=== PATIENT | male | born 1950 | race Caucasian/White ===

== ENCOUNTER 2017-06-30 08:12 | Emergency (ER) | payer OTHER ==
[2017-06-30 08:28] VITALS: BP 110/61
--- NOTE | 2017-06-30 08:45 | EDM.PDOC ---
ED HPI GENERAL MEDICAL PROBLEM - General Chief Complaint: Respiratory Problem Stated Complaint: CONGESTED Time Seen by Provider: 06/30/17 08:18 Source of Information: Reports: Patient History Limitations: Reports: No Limitations - History of Present Illness INITIAL COMMENTS - FREE TEXT/NARRATIVE: Patient comes into the emergency department with a three-day history of cough congestion. Patient is a type II diabetic and when he over exerts himself or is in a stressful situation he begins to feel fatigue and develop upper respiratory symptoms. His primary care provider gives him a Z-Oskar to help with the symptoms. Patient states he's been coughing lost 3 days producing green sputum his blood sugars have elevated up into the 200s which normally run around 110s. He also has difficulty lying flat due to the congestion increased nasal production. Pt denies any fever nausea, vomiting, diarrhea, chest pain, or shortness of breath. Onset: Gradual Improves with: Reports: Movement Worsens with: Reports: Rest Associated Symptoms: Reports: cough w sputum - Related Data Allergies Allergy/AdvReac Type Severity Reaction Status Date / Time No Known Allergies Allergy Verified 06/30/17 08:29 Home Meds: Home Meds Liraglutide [Victoza] 18 units DAILY 07/25/15 [History] Sildenafil [Viagra] 1 tab ASDIRECTED PRN 07/25/15 [History] metFORMIN [Glucophage] 1 tab BID 07/25/15 [History] Azithromycin [Zithromax] 250 mg PO DAILY 5 Days #6 tab 06/30/17 [Rx] Past Medical History Cardiovascular History: Reports: High Cholesterol Endocrine/Metabolic History: Reports: Diabetes, Type II - Past Surgical History Musculoskeletal Surgical History: Reports: Shoulder Surgery, Other (See Below) ED ROS GENERAL - Review of Systems Review Of Systems: See Below Constitutional: Reports: No Symptoms HEENT: Reports: No Symptoms Respiratory: Reports: Cough, Sputum. Denies: Shortness of Breath, Wheezing, Pleuritic Chest Pain Cardiovascular: Reports: No Symptoms Endocrine: Reports: No Symptoms GI/Abdominal: Reports: No Symptoms Musculoskeletal: Reports: No Symptoms Skin: Reports: No Symptoms Neurological: Reports: No Symptoms Psychiatric: Reports: No Symptoms Hematologic/Lymphatic: Reports: No Symptoms Immunologic: Reports: No Symptoms ED EXAM, GENERAL - Physical Exam Exam: See Below Exam Limited By: No Limitations General Appearance: Alert, WD/WN, No Apparent Distress Throat/Mouth: Normal Inspection Head: Atraumatic, Normocephalic Neck: Normal Inspection, Supple, Non-Tender, Full Range of Motion Respiratory/Chest: No Respiratory Distress, Lungs Clear, Normal Breath Sounds, No Accessory Muscle Use, Chest Non-Tender Cardiovascular: Normal Peripheral Pulses, Regular Rate, Rhythm, No Edema GI/Abdominal: Normal Bowel Sounds, Soft, Non-Tender, No Distention Back Exam: Normal Inspection, Full Range of Motion Extremities: Normal Inspection, Normal Range of Motion, Normal Capillary Refill Neurological: Alert, Oriented, CN II-XII Intact, Normal Cognition, Normal Gait, No Motor/Sensory Deficits Psychiatric: Normal Affect, Normal Mood Skin Exam: Warm, Dry, Intact, Normal Color, No Rash Course - Vital Signs Last Recorded V/S: Last Vital Signs Temp 35.8 C 06/30/17 08:18 Pulse 100 06/30/17 08:18 Resp 18 06/30/17 08:18 BP 110/61 06/30/17 08:18 Pulse Ox 94 L 06/30/17 08:18 Departure - Departure Time of Disposition: 08:40 Disposition: Home, Self-Care 01 Condition: Good Clinical Impression: Acute bronchiolitis Qualifiers: Bronchiolitis organism: unspecified organism Qualified Code(s): J21.9 - Acute bronchiolitis, unspecified Acute bronchitis Qualifiers: Bronchitis organism: unspecified organism Qualified Code(s): J20.9 - Acute bronchitis, unspecified - Discharge Information Prescriptions: Azithromycin [Zithromax] 250 mg PO DAILY 5 Days #6 tab Instructions: Bronchospasm, Adult, Upper Respiratory Infection, Adult, Easy-to- Read Additional Instructions: 1. Rest 2. Increase water intake 3. Follow up with PCP if not feeling better within 7-10 days - Problem List Review Problem List Initiated/Reviewed/Updated: Yes - Assessment/Plan Plan: 1. Did discuss with the patient in excess regarding viral versus bacterial etiology. Also discussed antibiotics stewardship. 2. Patient would like a Z-Oskar for his symptoms despite the education provided. He states that he has gotten that regiment for the past 30 years when he's had no issues and that has been what has worked well for him. 3. Prescription sent with the patient 4. Education regarding diet activity was provided 5. She was encouraged follow-up with his PCP in 7-10 days if not better
== END 2017-06-30 08:45 | disposition home or self-care (01) ==
LOC: VM.ED 08:12
DX: J21.9 Acute bronchiolitis, unspecified (principal); J20.9 Acute bronchitis, unspecified; E11.9 Type 2 diabetes mellitus without complications; E78.00 Pure hypercholesterolemia, unspecified; I10 Essential (primary) hypertension; Z79.84 Long term (current) use of oral hypoglycemic drugs
CPT/HCPCS: 99283

== ENCOUNTER 2018-09-21 09:14 | Emergency (ER) | payer OTHER ==
[2018-09-21 09:31] VITALS: BP 108/73; PULSE 88
--- NOTE | 2018-09-21 17:54 | EDM.PDOC ---
ED HPI GENERAL MEDICAL PROBLEM - General Chief Complaint: Cardiovascular Problem Stated Complaint: COUGHING Time Seen by Provider: 09/21/18 09:25 Source of Information: Reports: Patient History Limitations: Reports: No Limitations - History of Present Illness INITIAL COMMENTS - FREE TEXT/NARRATIVE: Pt. presents to ER with complaints of cough and chest congestion for the past week. He has been running some low-grade fever. He states that the cough is productive or greyish-yellow sputum. Denies any hemoptysis. He denies any sinus congestion. No chest pain or shortness of breath. He denies being around any ill contacts. Denies any skin rashes. Denies any peripheral edema. He complains of feeling fatigued and run down. Denies any sore throat. Onset: Today Onset Date: 09/21/18 Location: Reports: Chest Quality: Reports: Burning - Related Data Allergies Allergy/AdvReac Type Severity Reaction Status Date / Time No Known Allergies Allergy Verified 06/30/17 08:29 Home Meds: Home Meds Sildenafil [Viagra] 1 tab PO ASDIRECTED PRN 07/25/15 [History] Glimepiride [Amaryl] 2 mg PO BID 06/30/17 [History] Liraglutide [Victoza] 1.2 mg SQ DAILY 06/30/17 [History] Valsartan 160 mg PO DAILY 06/30/17 [History] metFORMIN HCl [Metformin HCl] 1,000 mg PO BID 06/30/17 [History] Empagliflozin [Jardiance] 1 tab DAILY 09/21/18 [History] Past Medical History Cardiovascular History: Reports: High Cholesterol Respiratory History: Reports: Bronchitis, Recurrent Endocrine/Metabolic History: Reports: Diabetes, Type II - Past Surgical History Musculoskeletal Surgical History: Reports: Shoulder Surgery Social & Family History - Tobacco Use Smoking Status *Q: Never Smoker - Alcohol Use Days Per Week of Alcohol Use: 7 Number of Drinks Per Day: 1 Total Drinks Per Week: 7 - Recreational Drug Use Recreational Drug Use: No ED ROS GENERAL - Review of Systems Review Of Systems: See Below Constitutional: Reports: Fever, Chills, Malaise, Fatigue HEENT: Reports: No Symptoms Respiratory: Reports: Cough Cardiovascular: Reports: No Symptoms Endocrine: Reports: No Symptoms GI/Abdominal: Reports: No Symptoms : Reports: No Symptoms Musculoskeletal: Reports: No Symptoms Skin: Reports: No Symptoms Neurological: Reports: No Symptoms Psychiatric: Reports: No Symptoms Hematologic/Lymphatic: Reports: No Symptoms Immunologic: Reports: No Symptoms ED EXAM, GENERAL - Physical Exam Exam: See Below Exam Limited By: No Limitations General Appearance: Alert, WD/WN, No Apparent Distress Nose: Normal Inspection, Normal Mucosa, No Blood Throat/Mouth: Normal Inspection, Normal Lips, Normal Teeth, Normal Gums, Normal Oropharynx, Normal Voice, No Airway Compromise Head: Atraumatic, Normocephalic Neck: Normal Inspection, Supple, Non-Tender, Full Range of Motion Respiratory/Chest: No Respiratory Distress, No Accessory Muscle Use, Crackles, Rhonchi Cardiovascular: Normal Peripheral Pulses, Regular Rate, Rhythm, No Edema, No Gallop, No JVD, No Murmur, No Rub Peripheral Pulses: 4+: Radial (L) (Male) Exam: Deferred Rectal (Males) Exam: Deferred Extremities: Normal Inspection, Normal Range of Motion, Non-Tender, Normal Capillary Refill, No Pedal Edema Neurological: Alert, Oriented, CN II-XII Intact, Normal Cognition, Normal Gait, Normal Reflexes, No Motor/Sensory Deficits Psychiatric: Normal Affect, Normal Mood Course - Vital Signs Last Recorded V/S: Last Vital Signs Temp 35.9 C 09/21/18 09:14 Pulse 88 09/21/18 09:14 Resp 18 09/21/18 09:14 BP 108/73 09/21/18 09:14 Pulse Ox 97 09/21/18 09:14 Departure - Departure Time of Disposition: 09:30 Disposition: Home, Self-Care 01 Condition: Good Clinical Impression: Bronchitis Instructions: Acute Bronchitis, Adult, [id number], Doxycycline tablets or capsules, Probiotics Forms: ED Department Discharge Additional Instructions: Doxycycline 100mg 1 twice daily for 10 days Drink plenty of fluids Tylenol or ibuprofen for fever/discomfort Mucinex or other OTC cough medicine as needed for cough - Assessment/Plan Plan: Doxycycline 100mg 1 twice daily for 10 days Drink plenty of fluids Tylenol or ibuprofen for fever/discomfort Mucinex or other OTC cough medicine as needed for cough
== END 2018-09-21 09:43 | disposition home or self-care (01) ==
LOC: VM.ED 09:14
DX: J40 Bronchitis, not specified as acute or chronic (principal); E11.9 Type 2 diabetes mellitus without complications; Z79.899 Other long term (current) drug therapy; Z79.84 Long term (current) use of oral hypoglycemic drugs; E78.00 Pure hypercholesterolemia, unspecified
CPT/HCPCS: 99283

== ENCOUNTER 2018-09-29 08:32 | Emergency (ER) | payer OTHER ==
[2018-09-29 08:55] VITALS: BP 103/73
[2018-09-29] MEDS ORDERED: Sodium Chloride 0.9% 10 ML Syringe FLUSH PRN (08:56)
[2018-09-29] MEDS ORDERED: cefTRIAXone 1 GM Vial IVPUSH ONE (08:57)
[2018-09-29] MEDS ORDERED: methylPREDNISolone Sodium Succinate 125 MG/2 ML SDV IVPUSH ONE (08:57)
--- NOTE | 2018-09-29 09:07 | EDM.PDOC ---
ED HPI GENERAL MEDICAL PROBLEM - General Chief Complaint: Respiratory Problem Stated Complaint: ER VISIT Time Seen by Provider: 09/29/18 08:40 Source of Information: Reports: Patient History Limitations: Reports: No Limitations - History of Present Illness INITIAL COMMENTS - FREE TEXT/NARRATIVE: Patient comes into the emergency department with increased congestion and cough. Patient was in approximately 1 week ago and was given doxycycline 100 mg twice a day for was thought to be a bronchial/upper respiratory issue. Patient states that he is not any better one week later. He states that he is coughing more, has more production, and is having difficulty lying flat because of the cough. He denies having any fever or shortness of breath with rest. However he has noticed with increased amount of exercise that he is becoming winded and more fatigued. Patient denies any other concerns or complaints Onset: Gradual Location: Reports: Chest Quality: Reports: Other Improves with: Reports: None Worsens with: Reports: None Associated Symptoms: Reports: Cough, cough w sputum, Malaise. Denies: Diaphoresis, Fever/Chills, Nausea/Vomiting - Related Data Allergies Allergy/AdvReac Type Severity Reaction Status Date / Time No Known Allergies Allergy Verified 09/29/18 08:48 Home Meds: Home Meds Sildenafil [Viagra] 1 tab PO ASDIRECTED PRN 07/25/15 [History] Glimepiride [Amaryl] 2 mg PO BID 06/30/17 [History] Liraglutide [Victoza] 1.2 mg SQ DAILY 06/30/17 [History] Valsartan 160 mg PO DAILY 06/30/17 [History] metFORMIN HCl [Metformin HCl] 1,000 mg PO BID 06/30/17 [History] Empagliflozin [Jardiance] 1 tab DAILY 09/21/18 [History] Levofloxacin 750 mg PO DAILY 5 Days #5 tablet 09/29/18 [Rx] predniSONE [Prednisone] 20 mg PO BID #5 tablet 09/29/18 [Rx] Past Medical History Cardiovascular History: Reports: High Cholesterol Respiratory History: Reports: Bronchitis, Recurrent Endocrine/Metabolic History: Reports: Diabetes, Type II - Past Surgical History Musculoskeletal Surgical History: Reports: Shoulder Surgery ED ROS GENERAL - Review of Systems Review Of Systems: ROS reveals no pertinent complaints other than HPI. Constitutional: Reports: Malaise, Fatigue, Decreased Appetite HEENT: Reports: No Symptoms Respiratory: Reports: Wheezing, Cough, Sputum Cardiovascular: Reports: No Symptoms Endocrine: Reports: No Symptoms GI/Abdominal: Reports: No Symptoms Musculoskeletal: Reports: No Symptoms Skin: Reports: No Symptoms Neurological: Reports: No Symptoms Psychiatric: Reports: No Symptoms Hematologic/Lymphatic: Reports: No Symptoms ED EXAM, GENERAL - Physical Exam Exam: See Below Exam Limited By: No Limitations General Appearance: Alert, WD/WN, No Apparent Distress Eye Exam: Bilateral Eye: EOMI, PERRL Respiratory/Chest: No Respiratory Distress, No Accessory Muscle Use, Chest Non- Tender, Rhonchi, Wheezing Cardiovascular: Normal Peripheral Pulses, Regular Rate, Rhythm, No Edema Extremities: Normal Inspection, Normal Range of Motion, Non-Tender, No Pedal Edema, Normal Capillary Refill Neurological: Alert, Oriented, Normal Gait Psychiatric: Normal Affect, Normal Mood Skin Exam: Warm, Dry, Intact, Normal Color Course - Vital Signs Last Recorded V/S: Last Vital Signs Temp 36.6 C 09/29/18 08:40 Pulse 90 09/29/18 08:40 Resp 16 09/29/18 08:40 BP 103/73 09/29/18 08:40 Pulse Ox 92 L 09/29/18 08:40 - Orders/Labs/Meds Orders: Active Orders 24 hr Category Date Time Status COMPREHENSIVE METABOLIC PN,CMP [CHEM] Stat Lab 09/29/18 08:56 Ordered Benzonatate [Tessalon Perles] Med 09/29/18 12:00 Ordered 100 mg PO TID Sodium Chloride 0.9% [Saline Flush] Med 09/29/18 08:56 Ordered 10 ml FLUSH ASDIRECTED PRN Peripheral IV Insertion Adult [OM.PC] Stat Oth 09/29/18 08:56 Ordered Medication Orders Benzonatate (Tessalon Perles) 100 mg PO TID ACE Sodium Chloride (Saline Flush) 10 ml FLUSH ASDIRECTED PRN PRN Reason: Keep Vein Open Labs: Laboratory Tests 09/29/18 Range/Units 09:03 WBC 6.7 (4.0-10.0) x10^3/uL RBC 5.09 (4.5-6.0) x10^6/uL Hgb 15.3 (14.0-18.0) g/dL Hct 44.5 (40.0-52.0) % MCV 87.4 (78.0-93.0) fL MCH 30.1 (26.0-32.0) pg MCHC 34.4 (32.0-36.0) g/dL RDW Coeff of [place] 12.6 (10.0-15.0) % Plt Count 172 (130-400) x10^3/uL Neut % (Auto) 68.3 (50.0-80.0) % Lymph % (Auto) 20.6 L (25.0-50.0) % [place] % (Auto) 9.0 (2.0-11.0) % Eos % (Auto) 1.5 (0.0-4.0) % Baso % (Auto) 0.6 (0.2-1.2) % Meds: Medications Generic Name Dose Route Start Last Admin Trade Name Freq PRN Reason Stop Dose Admin Benzonatate 100 mg 09/29/18 12:00 Tessalon Perles PO TID ACE Sodium Chloride 10 ml 09/29/18 08:56 Saline Flush FLUSH ASDIRECTED PRN Keep Vein Open Discontinued Medications Generic Name Dose Route Start Last Admin Trade Name Freq PRN Reason Stop Dose Admin Ceftriaxone Sodium 1 gm 09/29/18 08:57 09/29/18 09:11 Rocephin IVPUSH 09/29/18 08:58 1 gm ONETIME ONE Administration Methylprednisolone Sodium Succinate 125 mg 09/29/18 08:57 09/29/18 09:14 Solu-Medrol IVPUSH 09/29/18 08:58 125 mg ONETIME ONE Administration Departure - Departure Time of Disposition: 09:30 Disposition: Home, Self-Care 01 Condition: Good Clinical Impression: Community acquired pneumonia Qualifiers: Laterality: unspecified laterality Qualified Code(s): J18.9 - Pneumonia, unspecified organism - Discharge Information *PRESCRIPTION DRUG MONITORING PROGRAM REVIEWED*: Not Applicable *COPY OF PRESCRIPTION DRUG MONITORING REPORT IN PATIENT LEIA: Not Applicable Prescriptions: Levofloxacin 750 mg PO DAILY 5 Days #5 tablet predniSONE [Prednisone] 20 mg PO BID #5 tablet Instructions: Community-Acquired Pneumonia, Adult, [id number], Probiotics, Levofloxacin tablets, Prednisone tablets Referrals: Regan Freedman MD [Primary Care Provider] - Forms: ED Department Discharge Additional Instructions: 1. rest 2. increase your water intake 3. Take medications as prescribed 4. Follow up in the clinic if not feeling better within a week 5. Take a probiotic to promote health GI digestion while on antibiotics. 6. Blood sugars may elevate with the use of steroids continue to monitor closely and follow up in the clinic if unable to regulate or if symptoms arise 7. Can take the Tessalon pearls as needed for cough 8. Call with any questions or concerns - My Orders Last 24 Hours: My Active Orders 09/29/18 08:56 COMPREHENSIVE METABOLIC PN,CMP [CHEM] Stat Sodium Chloride 0.9% [Saline Flush] 10 ml FLUSH ASDIRECTED PRN Peripheral IV Insertion Adult [OM.PC] Stat 09/29/18 12:00 Benzonatate [Tessalon Perles] 100 mg PO TID - Assessment/Plan Last 24 Hours: My Active Orders 09/29/18 08:56 COMPREHENSIVE METABOLIC PN,CMP [CHEM] Stat Sodium Chloride 0.9% [Saline Flush] 10 ml FLUSH ASDIRECTED PRN Peripheral IV Insertion Adult [OM.PC] Stat 09/29/18 12:00 Benzonatate [Tessalon Perles] 100 mg PO TID Assessment:: 1. prolong cough 2. wheezing 3. Community acquired pneumonia
--- NOTE | 2018-09-29 09:28 | CR ---
[id number] RAD/RAD Chest PA And Lateral EXAM: FRONTAL AND LATERAL CHEST INDICATION: Congestion, cough and abnormal breath sounds. COMPARISON: None. DISCUSSION: Mild subsegmental atelectasis in the lung bases with no definite infiltrates. Normal heart size. Mild mid thoracic compression fracture. IMPRESSION: 1. Mild bibasilar atelectasis with no definite infiltrates. Aravind Santos MD 09/29/18 0926 Thank you for allowing us to participate in the care of your patient.
[2018-09-29 09:30] LABS: CHLORIDE,CL 102 mmol/L (98-107); SODIUM,NA 139 mmol/L (136-145)
[2018-09-29] MEDS ORDERED: Benzonatate 100 MG Cap ONE (09:37)
[2018-09-29] MEDS ORDERED: Benzonatate 100 MG Cap PO SCH (12:00)
== END 2018-09-29 09:35 | disposition home or self-care (01) ==
LOC: VM.ED 08:32
DX: J18.9 Pneumonia, unspecified organism (principal); E11.9 Type 2 diabetes mellitus without complications; Z79.899 Other long term (current) drug therapy; Z79.84 Long term (current) use of oral hypoglycemic drugs; E78.00 Pure hypercholesterolemia, unspecified
CPT/HCPCS: 71046; 80053; 85025; 96374; 96375; 99283; J0696; J2930

== ENCOUNTER 2019-09-06 11:38 | Emergency (ER) | payer OTHER ==
--- NOTE | 2019-09-06 11:56 | EDM.PDOC ---
ED HPI GENERAL MEDICAL PROBLEM - General Chief Complaint: Lower Extremity Injury/Pain Stated Complaint: HURT LEFT FOOT Time Seen by Provider: 09/06/19 11:40 Source of Information: Reports: Patient History Limitations: Reports: No Limitations - History of Present Illness INITIAL COMMENTS - FREE TEXT/NARRATIVE: She comes into the emergency department with complaints of the left foot injury. Patient states that he was walking to the bathroom last evening and ended up stubbing his left pinky toe between the door jam. He states that he felt pain and discomfort right away however he was able to continue with his activities of daily living. Shortly after the injury he states that it was throbbing sitting. When the patient rested things did get better. He states that this morning he woke up and noticed that it was bruised more on the pinky toe but was able to ambulate without difficulty. He was up doing yard work and however the discomfort has continued to progress. He wants further evaluation to see if a wrap or brace should be supported. Patient denies any numbness or tingling and states he does have range of motion. Any break in the skin that, bleeding, redn ess, or swelling. Patient also denies any chest pain, shortness of breath, dizziness, loss consciousness, abdominal discomfort, GI upset, or peripheral edema. Patient states he is been relatively healthy and has no symptoms of COVID-19 or recent exposure that he is aware of or personal testing. Onset: Sudden Location: Reports: Lower Extremity, Left Quality: Reports: Throbbing Severity: Mild Improves with: Reports: Immobilization Worsens with: Reports: Movement Context: Reports: Activity Associated Symptoms: Reports: No Other Symptoms - Related Data Allergies Allergy/AdvReac Type Severity Reaction Status Date / Time No Known Allergies Allergy Verified 09/29/18 08:48 Home Meds: Home Meds Sildenafil [Viagra] 1 tab PO ASDIRECTED PRN 07/25/15 [History] Glimepiride [Amaryl] 2 mg PO BID 06/30/17 [History] Liraglutide [Victoza] 1.2 mg SQ DAILY 06/30/17 [History] Valsartan 160 mg PO DAILY 06/30/17 [History] metFORMIN HCl [Metformin HCl] 1,000 mg PO BID 06/30/17 [History] Empagliflozin [Jardiance] 1 tab DAILY 09/21/18 [History] Levofloxacin 750 mg PO DAILY 5 Days #5 tablet 09/29/18 [Rx] predniSONE [Prednisone] 20 mg PO BID #5 tablet 09/29/18 [Rx] Past Medical History Cardiovascular History: Reports: High Cholesterol Respiratory History: Reports: Bronchitis, Recurrent Endocrine/Metabolic History: Reports: Diabetes, Type II - Past Surgical History Musculoskeletal Surgical History: Reports: Shoulder Surgery Review of Systems - Review of Systems Review Of Systems: Comprehensive ROS is negative, except as noted in HPI. Constitutional: Reports: No Symptoms Eyes: Reports: No Symptoms Ears: Reports: No Symptoms Nose: Reports: No Symptoms Mouth/Throat: Reports: No Symptoms Respiratory: Reports: No Symptoms Cardiovascular: Reports: No Symptoms GI/Abdominal: Reports: No Symptoms Genitourinary: Reports: No Symptoms Skin: Reports: No Symptoms Neurological: Reports: No Symptoms Psychiatric: Reports: No Symptoms ED EXAM, GENERAL - Physical Exam Exam: See Below Exam Limited By: No Limitations General Appearance: Alert, WD/WN, No Apparent Distress Head: Atraumatic, Normocephalic Cardiovascular: Regular Rate, Rhythm, No Edema Peripheral Pulses: 4+: Dorsalis Pedis (L), Dorsalis Pedis (R) Back Exam: Normal Inspection, Full Range of Motion Extremities: Normal Inspection, Other (left foot 5 digit-ecchymosis noted. No redness, swelling, warmth, bleedin or deformity noted) Neurological: Alert, Oriented, Normal Gait Psychiatric: Normal Affect, Normal Mood Skin Exam: Warm, Dry, Intact Course - Orders/Labs/Meds Orders: Active Orders 24 hr Category Date Time Status Foot Comp Min 3V Lt [CR] Stat Exams 09/06/19 11:49 Taken Departure - Departure Time of Disposition: 12:30 Disposition: Home, Self-Care 01 Condition: Good Clinical Impression: Toe fracture, left Qualifiers: Encounter type: initial encounter Toe: lesser toe Fracture type: closed Phalanx: proximal Fracture alignment: nondisplaced Qualified Code(s): S92.515A - Nondisplaced fracture of proximal phalanx of left lesser toe(s), initial encounter for closed fracture - Discharge Information *PRESCRIPTION DRUG MONITORING PROGRAM REVIEWED*: Not Applicable *COPY OF PRESCRIPTION DRUG MONITORING REPORT IN PATIENT LEIA: Not Applicable Instructions: Toe Fracture, [id number] Referrals: Regan Freedman MD [Primary Care Provider] - Forms: ED Department Discharge Additional Instructions: 1. Rest 2. wear splint for 5-7 days as needed to help with any pain or discomfort 3. Can use tylenol and ibuprofen as needed for pain and discomfort 4. Diet as tolerated 5. Activity as tolerated 6. Elevated the injured area above the level of the heart to decrease swelling and discomfort. 7. Use ice 3-4 times a day at 20-minute intervals to help with any swelling and discomfort 8. Follow-up with your primary care provider symptoms continue or to progress 9. Follow with any questions or concerns 10. Discharge information has been provided regarding your injury - My Orders Last 24 Hours: My Active Orders 09/06/19 11:49 Foot Comp Min 3V Lt [CR] Stat - Assessment/Plan Last 24 Hours: My Active Orders 09/06/19 11:49 Foot Comp Min 3V Lt [CR] Stat Assessment:: 1. left foot injury 2. left toe fracture Plan: 1. X-ray completed in the emergency department results reviewed with the patient 2. Ice Applied to the affected limb 3. surgical shoe applied for comfort 4. Medication offered to the patient- pt denied needing any medication at this time 5. Education regarding splinting, activity, [id number] medications, and follow-up care provided. 6. All questions and concerns addressed with the patient prior to discharge
[2019-09-06 12:48] VITALS: BP 125/77; PULSE 82
--- NOTE | 2019-09-06 12:59 | CR ---
[id number] RAD/RAD Foot Left 3V Min EXAM: RAD Foot Left 3V Min CLINICAL DATA: TRAUMA COMPARISON: No previous similar exam is available. FINDINGS: A comminuted fracture is seen at the base of the left fifth proximal phalanx with articular involvement. IMPRESSION: LEFT FIFTH PROXIMAL PHALANGEAL FRACTURE Scottie Guzman MD 09/06/19 [id number] Thank you for allowing us to participate in the care of your patient.
== END 2019-09-06 12:30 | disposition home or self-care (01) ==
LOC: VM.ED 11:38
DX: S92.515A Nondisplaced fracture of proximal phalanx of left lesser toe(s), initial encounter for closed fracture (principal); E11.9 Type 2 diabetes mellitus without complications; E78.00 Pure hypercholesterolemia, unspecified; Z79.84 Long term (current) use of oral hypoglycemic drugs; Z79.899 Other long term (current) drug therapy; W23.0XXA Caught, crushed, jammed, or pinched between moving objects, initial encounter
CPT/HCPCS: 73630-LT; 99283-25; 99283-GF

== ENCOUNTER 2024-04-26 08:29 | Emergency (ER) | payer MEDICARE, OTHER ==
[2024-04-26 09:21] VITALS: BP 122/68; PULSE 89
== END 2024-04-26 09:10 | disposition home or self-care (01) ==
LOC: VM.ED 08:29
DX: J06.9 Acute upper respiratory infection, unspecified (principal); E11.9 Type 2 diabetes mellitus without complications; Z79.84 Long term (current) use of oral hypoglycemic drugs; Z79.899 Other long term (current) drug therapy
CPT/HCPCS: 99283

== ENCOUNTER 2024-06-07 08:24 | Emergency (ER) | payer MEDICARE, OTHER ==
[2024-06-07 08:42] LABS: BASOPHILS ABSOLUTE AUTO 0.4 x10^3/uL (0.0-0.2); BASOPHILS PERCENT AUTO 2.5 % (0.2-1.2); EOSINOPHILS ABSOLUTE AUTO 0.5 x10^3/uL (0.0-0.5); HEMATOCRIT 41.7 % (40.0-52.0); HEMOGLOBIN 13.4 g/dL (14.0-18.0); IMMATURE GRAN ABSOLUTE AUTO 0.63 x10^3/uL (0.00-0.07); LYMPHOCYTES ABSOLUTE AUTO 1.6 x10^3/uL (1.0-4.8); LYMPHOCYTES PERCENT AUTO 10.8 % (25.0-50.0); MEAN CORPUSCULAR HEMOGLOBIN 27.5 pg (26.0-32.0); MEAN CORPUSCULAR HGB CONC 32.1 g/dL (32.0-36.0); MEAN CORPUSCULAR VOLUME 85.6 fL (78.0-93.0); MONOCYTES ABSOLUTE AUTO 1.5 x10^3/uL (0.0-0.8); MONOCYTES PERCENT AUTO 10.2 % (2.0-11.0); NEUTROPHILS ABSOLUTE AUTO 10.3 x10^3/uL (1.8-7.7); NEUTROPHILS PERCENT AUTO 69.3 % (50.0-80.0); PLATELET COUNT,PLT 156 x10^3/uL (130-400); RED BLOOD CELL COUNT 4.87 x10^6/uL (4.5-6.0); WHITE BLOOD CELL COUNT,WBC 14.9 x10^3/uL (4.0-10.0)
[2024-06-07 09:09] LABS: ALANINE AMINOTRANSFERASE,ALT 39 U/L (16-63); ALBUMIN 3.6 g/dL (3.4-5.0); ALKALINE PHOSPHATASE 96 U/L (46-116); ASPARTATE AMNIOTRANSFERASE,AST 23 U/L (15-37); BILIRUBIN TOTAL 0.5 mg/dL (0.2-1.0); BLOOD UREA NITROGEN,BUN 35 mg/dL (7-18); CALCIUM 8.9 mg/dL (8.5-10.1); CARBON DIOXIDE,CO2 30 mmol/L (21-32); CHLORIDE,CL 103 mmol/L (98-107); GLUCOSE RANDOM 212 mg/dL (70-99); MAGNESIUM 1.9 mg/dL (1.8-2.4); POTASSIUM,K 4.2 mmol/L (3.5-5.1); PRO B-TYPE NATRIUR PEPT,BNPPRO 2616 pg/mL (<=450); PROTEIN TOTAL,TP 7.2 g/dL (6.4-8.2); SODIUM,NA 139 mmol/L (136-145)
[2024-06-07 09:13] LABS: ANION GAP 10.2 mmol/L (5-15); ESTIMATED GFR 78 mL/min (>=60)
[2024-06-07] MEDS: Furosemide 40 MG/4 ML VIAL IV ONE (09:54)
[2024-06-07 10:50] VITALS: PULSE 86
[2024-06-07 13:23] VITALS: BP 112/66
== END 2024-06-07 12:26 | disposition short-term general hospital (02) ==
LOC: VM.ED 08:24
DX: I11.0 Hypertensive heart disease with heart failure (principal); I50.9 Heart failure, unspecified; E11.9 Type 2 diabetes mellitus without complications; Z79.899 Other long term (current) drug therapy
CPT/HCPCS: 71045; 80053; 83735; 83880; 84484; 85025; 93005; 93010; 96374; 99284; 99285-25; J1938

== ENCOUNTER 2024-08-28 08:46 | Emergency (ER) | payer MEDICARE, OTHER ==
[2024-08-28 09:00] LABS: PLATELET COUNT,PLT 165 x10^3/uL (130-400); RED BLOOD CELL COUNT 4.83 x10^6/uL (4.5-6.0)
[2024-08-28] MEDS ORDERED: Heparin Sodium 5,000 Units/ML Vial IVPUSH ONE (09:05)
[2024-08-28 09:07] LABS: WHITE BLOOD CELL COUNT,WBC 33.4 x10^3/uL (4.0-10.0)
[2024-08-28 09:17] LABS: EOSINOPHILS ABSOLUTE MAN 1.0 x10^3/uL (0.0-0.5); EOSINOPHILS PERCENT MAN 3 % (0-4); LYMPHOCYTES ABSOLUTE MAN 4.7 x10^3/uL (1.0-4.8); LYMPHOCYTES PERCENT MAN 14 % (25-50); MONOCYTES ABSOLUTE MAN 5.3 x10^3/uL (0.0-0.8); MONOCYTES PERCENT MAN 16 % (2-11); NEUTROPHILS ABSOLUTE MAN 22.4 x10^3/uL (1.8-7.7); SEG NEUTROPHILS PERCENT MAN 67 % (50-80)
[2024-08-28 09:18] LABS: PLATELET COUNT ESTIMATE ADEQUATE
[2024-08-28 09:28] LABS: A/G RATIO 0.88; ALANINE AMINOTRANSFERASE,ALT 41 U/L (16-63); ASPARTATE AMNIOTRANSFERASE,AST 36 U/L (15-37); BILIRUBIN TOTAL 0.6 mg/dL (0.2-1.0); BLOOD UREA NITROGEN,BUN 28 mg/dL (7-18); CARBON DIOXIDE,CO2 29 mmol/L (21-32); CHLORIDE,CL 97 mmol/L (98-107); CREATININE 1.4 mg/dL (0.70-1.30); ESTIMATED GFR 52 mL/min (>=60); GLUCOSE RANDOM 216 mg/dL (70-99); POTASSIUM,K 4.3 mmol/L (3.5-5.1); PRO B-TYPE NATRIUR PEPT,BNPPRO 3317 pg/mL (<=450); PROTEIN TOTAL,TP 7.7 g/dL (6.4-8.2); SODIUM,NA 139 mmol/L (136-145)
== END 2024-08-28 11:48 | disposition short-term general hospital (02) ==
LOC: VM.ED 08:46
DX: I21.4 Non-ST elevation (NSTEMI) myocardial infarction (principal); D72.829 Elevated white blood cell count, unspecified; I11.0 Hypertensive heart disease with heart failure; I50.9 Heart failure, unspecified; I48.91 Unspecified atrial fibrillation; I25.10 Atherosclerotic heart disease of native coronary artery without angina pectoris; E11.9 Type 2 diabetes mellitus without complications; Z79.899 Other long term (current) drug therapy
CPT/HCPCS: 36415; 71045; 80053; 83735; 83880; 84484; 85025; 99285

== ENCOUNTER 2024-09-18 08:49 | Emergency (ER) | payer MEDICARE, OTHER ==
[2024-09-18] MEDS ORDERED: Sodium Chloride 0.9% 10 ML Syringe FLUSH PRN (09:13)
[2024-09-18 09:38] LABS: PLATELET COUNT,PLT 146 x10^3/uL (130-400); RED BLOOD CELL COUNT 4.61 x10^6/uL (4.5-6.0)
[2024-09-18 09:40] LABS: WHITE BLOOD CELL COUNT,WBC 44.2 x10^3/uL (4.0-10.0)
[2024-09-18 09:53] LABS: BAND PERCENT MAN 5 % (0-6); LYMPHOCYTES ABSOLUTE MAN 1.8 x10^3/uL (1.0-4.8); LYMPHOCYTES PERCENT MAN 4 % (25-50); METAMYELOCYTE PERCENT MAN 3 % (0); MONOCYTES ABSOLUTE MAN 4.9 x10^3/uL (0.0-0.8); MONOCYTES PERCENT MAN 11 % (2-11); NEUTROPHILS ABSOLUTE MAN 36.2 x10^3/uL (1.8-7.7); SEG NEUTROPHILS PERCENT MAN 77 % (50-80)
[2024-09-18 09:54] LABS: PLATELET COUNT ESTIMATE ADEQUATE
[2024-09-18 10:02] LABS: LACTIC ACID 5.0 mmol/L (0.4-2.0)
[2024-09-18 10:05] LABS: A/G RATIO 0.95; ALANINE AMINOTRANSFERASE,ALT 51 U/L (16-63); ASPARTATE AMNIOTRANSFERASE,AST 43 U/L (15-37); BILIRUBIN TOTAL 1.0 mg/dL (0.2-1.0); BLOOD UREA NITROGEN,BUN 32 mg/dL (7-18); CARBON DIOXIDE,CO2 25 mmol/L (21-32); CHLORIDE,CL 95 mmol/L (98-107); CREATININE 1.7 mg/dL (0.70-1.30); GLUCOSE RANDOM 180 mg/dL (70-99); POTASSIUM,K 4.0 mmol/L (3.5-5.1); PRO B-TYPE NATRIUR PEPT,BNPPRO 13809 pg/mL (<=450); PROTEIN TOTAL,TP 7.2 g/dL (6.4-8.2); SODIUM,NA 137 mmol/L (136-145)
[2024-09-18 10:07] LABS: ESTIMATED GFR 42 mL/min (>=60)
[2024-09-18 10:36] LABS: APPEARANCE,URINE CLEAR (CLEAR); GLUCOSE,URINE 500 mg/dL (NEGATIVE); OCCULT BLOOD,URINE NEGATIVE (NEGATIVE)
[2024-09-18] MEDS: Heparin Sodium 5,000 Units/ML Vial IVPUSH ONE (10:40)
[2024-09-18] MEDS: Heparin Sodium/0.45% NaCl 25,000 UNITS/250 ML BAG IV STA (10:43)
[2024-09-18 11:55] VITALS: BP 99/66; PULSE 84
== END 2024-09-18 10:56 | disposition short-term general hospital (02) ==
LOC: VM.ED 08:49
DX: A41.9 Sepsis, unspecified organism (principal); I21.4 Non-ST elevation (NSTEMI) myocardial infarction; I48.91 Unspecified atrial fibrillation; I25.10 Atherosclerotic heart disease of native coronary artery without angina pectoris; I11.0 Hypertensive heart disease with heart failure; I50.9 Heart failure, unspecified; E78.00 Pure hypercholesterolemia, unspecified; E11.9 Type 2 diabetes mellitus without complications; K21.9 Gastro-esophageal reflux disease without esophagitis; Z95.5 Presence of coronary angioplasty implant and graft; Z79.51 Long term (current) use of inhaled steroids; Z79.84 Long term (current) use of oral hypoglycemic drugs; Z79.01 Long term (current) use of anticoagulants; Z79.82 Long term (current) use of aspirin; Z79.899 Other long term (current) drug therapy
CPT/HCPCS: 36415; 71045; 80053; 80162; 81003; 83605; 83735; 83880; 84484; 85025; 85379; 86140; 87040; 93005; 93010; 96374; 96375; 99284; 99285-25; J0696; J1644